=== PATIENT | female | born 1985 | race African-American/Black ===

== ENCOUNTER 2016-06-12 18:16 | Emergency (ER) | payer MEDICAID ==
[~2016-06-12] VITALS: Ht 172.7 cm; Wt 84.1 kg
[2016-06-12] MEDS ORDERED: TraMADol HCL 50 MG TABLET PO ONE (21:30)
[2016-06-12 22:15] VITALS: BP 112/84
[2016-06-12] MEDS ORDERED: AMOXICILLIN TRIHYDRATE 250 MG CAPSULE PO ONE (22:45)
[2016-06-12] MEDS ORDERED: IBUPROFEN 600 MG TABLET PO ONE (22:45)
== END 2016-06-12 22:48 | disposition home or self-care (01) ==
LOC: EMS 18:17
DX: S09.90XA Unspecified injury of head, initial encounter (principal); S01.01XA Laceration without foreign body of scalp, initial encounter; I10 Essential (primary) hypertension; H66.91 Otitis media, unspecified, right ear; W19.XXXA Unspecified fall, initial encounter; Y93.89 Activity, other specified; Y92.89 Other specified places as the place of occurrence of the external cause; Y99.8 Other external cause status
CPT/HCPCS: 70450; 81025; 99284

== ENCOUNTER 2017-07-18 08:59 | Emergency (ER) | payer MEDICAID, OTHER ==
[~2017-07-18] VITALS: Ht 172.7 cm; Wt 88.6 kg
[2017-07-18] MEDS ORDERED: LISI-661 PO (09:20)
[2017-07-18 11:16] VITALS: BP 172/128
[2017-07-18] MEDS ORDERED: DOXYCYCLINE 100 MG CAPSULE PO ONE (11:30)
[2017-07-18] MEDS ORDERED: BENZONATATE 100 MG CAPSULE PO ONE (11:30)
== END 2017-07-18 12:14 | disposition home or self-care (01) ==
LOC: EMS 09:01
DX: J18.9 Pneumonia, unspecified organism (principal); I10 Essential (primary) hypertension
CPT/HCPCS: 71046; 99284

== ENCOUNTER 2020-04-24 10:05 | Emergency (ER) | payer SELFPAY ==
[~2020-04-24] VITALS: Ht 175.3 cm; Wt 72.7 kg
[~2020-04-24 10:05] MED LIST: LISI-661 PO
[2020-04-24] MEDS ORDERED: PHEN-748 PO (10:11)
[2020-04-24] MEDS ORDERED: DEXT236S PO (10:11)
[2020-04-24 10:14] VITALS: BP 197/121
[2020-04-24] MEDS ORDERED: KETOROLAC TROMETHAMINE 60 MG/2 ML VIAL IM ONE (10:45)
[2020-04-24] MEDS ORDERED: DEXAMETHASONE SOD PHOS 4 MG/ML 5 ML VIAL IM ONE (12:15)
[2020-04-24] MEDS ORDERED: PENICILLIN G BENZATHINE LA 1,200,000 UNITS/2 ML SYRINGE IM ONE (12:15)
== END 2020-04-24 13:06 | disposition home or self-care (01) ==
LOC: EMS 10:13
DX: J02.0 Streptococcal pharyngitis (principal); I10 Essential (primary) hypertension; F17.200 Nicotine dependence, unspecified, uncomplicated
CPT/HCPCS: 81025; 87430; 96372; 99284; J0561; J1100; J1885

== ENCOUNTER 2020-07-02 18:37 | Emergency (ER) | payer MEDICAID ==
[~2020-07-02] VITALS: Ht 172.7 cm; Wt 79.5 kg
[~2020-07-02 18:37] MED LIST changes: +DEXT236S PO; -LISI-661 PO; +PHEN-748 PO
[2020-07-02 18:44] VITALS: BP 131/86
[2020-07-02] MEDS ORDERED: LISI-892 PO (18:46)
[2020-07-02 20:43] LABS: APPEARANCE,URINE CLOUDY (CLEAR); BILIRUBIN,URINE NEGATIVE (NEGATIVE); GLUCOSE, URINE (UA) NEGATIVE (NEGATIVE); KETONES,URINE NEGATIVE (NEGATIVE); LEUKOCYTE ESTERASE ,URINE TRACE (NEGATIVE); OCCULT BLOOD,URINE TRACE (NEGATIVE); PROTEIN,URINE TRACE (NEGATIVE); UROBILINOGEN,URINE 0.2 mg/dL (<=1.0)
[2020-07-02 20:55] LABS: BACTERIA,URINE Many /HPF (None Seen); NITRATE,URINE POSITIVE (NEGATIVE); SQUAMOUS EPITHELIAL CELL,UR Many /LPF (None Seen)
== END 2020-07-02 20:38 | disposition home or self-care (01) ==
LOC: EMS 18:37
DX: N30.91 Cystitis, unspecified with hematuria (principal); F17.210 Nicotine dependence, cigarettes, uncomplicated; F12.90 Cannabis use, unspecified, uncomplicated
CPT/HCPCS: 87086; 99283

== ENCOUNTER 2021-11-17 09:42 | Emergency (ER) | payer MEDICAID ==
[~2021-11-17] VITALS: Ht 172.7 cm; Wt 73.0 kg
[~2021-11-17 09:42] MED LIST changes: -DEXT236S PO; +LISI-892 PO; -PHEN-748 PO
[2021-11-17 09:57] VITALS: BP 181/100
== END 2021-11-17 12:00 | disposition left against medical advice (07) ==
LOC: EMS 09:45
DX: Z53.21 Procedure and treatment not carried out due to patient leaving prior to being seen by health care provider (principal)

== ENCOUNTER 2023-07-26 23:44 | Emergency (ER) | payer MEDICAID, OTHER ==
[~2023-07-26] VITALS: Ht 172.7 cm; Wt 92.7 kg
[2023-07-26 23:51] VITALS: TEMP 97.9
[2023-07-27] MEDS: LISINOPRIL 10 MG TABLET PO ONE (00:24)
[2023-07-27] MEDS: SODIUM CHLORIDE 0.9% 1,000 ML IV ONE (00:24)
[2023-07-27 02:01] LABS: ANION GAP 9 mmol/L (8-16); BASOPHILS % (AUTO) 0.6 % (0.0-2.0); CARBON DIOXIDE 27 mmol/L (22-29); CHLORIDE 103 mmol/L (98-107); CREATININE 0.98 mg/dL (0.60-1.30); EOSINOPHILS % (AUTO) 3.3 % (1.0-6.0); GLOMERULAR FILTR. RATE CALC > 60 mL/min (>60); GLUCOSE,RANDOM 104 mg/dL (70-110); HEMATOCRIT 37.9 % (36-46); HEMOGLOBIN 12.2 g/dL (12.0-16.0); LYMPHOCYTES # (AUTO) 1.5 K/uL (1.0-4.8); LYMPHOCYTES % (AUTO) 20.5 % (22.0-44.0); MEAN CORPUSCULAR HEMOGLOBIN 24.8 pg (26.0-34.0); MEAN CORPUSCULAR HGB CONC 32.2 G/dL (31.0-37.0); MEAN CORPUSCULAR VOLUME 77 fL (80-100); MONOCYTES # (AUTO) 0.8 K/uL (0.1-1.0); MONOCYTES % (AUTO) 11.1 % (2.0-9.0); NEUTROPHILS # (AUTO) 4.9 K/uL (1.8-7.7); NEUTROPHILS % (AUTO) 64.5 % (40.0-70.0); PLATELET COUNT (AUTO) 294 K/uL (150-450); POTASSIUM 3.5 mmol/L (3.5-5.1); RED BLOOD CELL COUNT(AUTO) 4.92 MIL/uL (4.00-5.20); RED CELL DISTRIBUTION WIDTH 15.7 % (11.5-14.5); SODIUM SERUM 139 mmol/L (136-145); UREA NITROGEN, BLOOD 12 mg/dL (7-18); WHITE BLOOD COUNT (AUTO) 7.5 K/uL (4.5-11.0)
[2023-07-27 02:04] LABS: RBC MORPHOLOGY COMMENT ABNORMAL RBC MORPH
[2023-07-27 02:06] LABS: ALCOHOL, BLOOD (SERUM) < 3 mg/dL (0-10)
[2023-07-27 02:07] LABS: ALANINE AMINOTRANSFERASE 61 U/L (12-78); ALBUMIN 3.9 g/dL (3.4-5.0); ALKALINE PHOSPHATASE 72 U/L (46-116); ASPARTATE AMINOTRANSFERASE 58 U/L (15-37); BILIRUBIN,TOTAL 0.7 mg/dL (0.1-1.0); TOTAL PROTEIN, SERUM 8.1 g/dL (6.4-8.2)
[2023-07-27 02:12] LABS: TROPONIN I-HIGH SENSITIVITY 9 ng/L (<51)
[2023-07-27] MEDS: CloNIDine HCL 0.1 MG TABLET PO ONE (02:15)
[2023-07-27 02:53] VITALS: BP 160/101; PULSE 88; RESP 16
[2023-07-27] MEDS ORDERED: HYDR25TA2 PO (02:56)
[2023-07-27] MEDS ORDERED: LISI-662 PO (02:56)
== END 2023-07-27 03:14 | disposition home or self-care (01) ==
LOC: EMS 23:45
DX: I10 Essential (primary) hypertension (principal); F17.210 Nicotine dependence, cigarettes, uncomplicated; F12.90 Cannabis use, unspecified, uncomplicated; F15.90 Other stimulant use, unspecified, uncomplicated
CPT/HCPCS: 99284; 80053; 84484; 84703; 85025; 36415; 96360; 71045; 93005; G0480; J7030